=== PATIENT | female | born 1985 | race Caucasian/White ===

== ENCOUNTER 2019-07-17 14:59 | Outpatient (CLI) | payer OTHER, SELFPAY ==
--- NOTE | ~2019-07-17 | US_ITS ---
US thyroid INDICATION: Nontoxic goiter. TECHNIQUE: Real-time sonographic images of the thyroid gland were obtained. COMPARISON: No prior studies for comparison. FINDINGS: The right thyroid lobe measures 5 x 1.8 x 1.5 cm. The left thyroid lobe measures 5.4 x 1.6 x 1.6 cm. The left thyroid lobe there is a 3 mm cyst. There is normal vascularity. In the right thyr oid lobe there is a 3 mm cystic lesion. No suspicious masses are identified to suggest malignancy. IMPRESSION: 1. Enlarged thyroid gland with benign-appearing 3 mm cystic lesions in both lobes. No suspicious mas ses are identified. Reviewed, dictated and finalized at location A. IMPRESSION: 1. Enlarged thyroid gland with benign-appearing 3 mm cystic lesions in both lo bes. No suspicious masses are identified.
== END 2019-07-17 15:00 | disposition home or self-care (01) ==
LOC: ANHIMG 15:06
PROVIDERS: PCP Physician Assistant; Visit Provider Physician Assistant
DX: E04.9 Nontoxic goiter, unspecified (principal)
CPT/HCPCS: 76536